=== PATIENT | male | born 1970 | race Caucasian/White ===

== ENCOUNTER 2020-06-11 11:40 | Outpatient (RCR) | payer OTHER, SELFPAY | END 2020-07-30 16:30 | disposition home or self-care (01) | LOC: HO.WCC 11:40 | PROVIDERS: Visit Provider Physician Assistant Surgical | DX: I87.311 Chronic venous hypertension (idiopathic) with ulcer of right lower extremity (principal); L97.812 Non-pressure chronic ulcer of other part of right lower leg with fat layer exposed; Z79.899 Other long term (current) drug therapy | CPT/HCPCS: 11042; 15271; 29581; 99211; 99213; Q4101 ==

== ENCOUNTER 2020-08-05 11:06 | Outpatient (REF) | payer OTHER, SELFPAY ==
[2020-08-05 12:01] LABS: MANUAL DIFF FLAG NO
[2020-08-05 12:03] LABS: Basophils Percent Auto 0.4 % (0-2); Eosinophils Absolute Auto 0.3 X10*3/uL (0.0-0.4); Eosinophils Percent Auto 2.7 % (0-4); Hematocrit 39.1 % (42-52); Hemoglobin 12.5 g/dl (14.0-18.0); Imm Gran Abs Auto 0.02 X10*3/uL (0.00-0.03); Imm Gran Pct Auto 0.2 % (0.0-0.4); Lymphocytes Absolute Auto 1.8 X10*3/uL (1.2-4.9); Lymphocytes Percent Auto 19.6 % (20-40); Mean Corpuscular Hemoglobin 29.9 pg (27.0-33.0); Mean Corpuscular Volume 93.5 fL (80-98); Monocytes Absolute Auto 0.7 X10*3/uL (0.1-1.2); Monocytes Percent Auto 7.4 % (2-11); Neutrophils Absolute Auto 6.3 X10*3/uL (2.0-8.3); Neutrophils Percent Auto 69.7 % (45-73); Platelet Count 284 X10*3/uL (160-400); Red Blood Count 4.18 X10*6/uL (4.60-5.80); Red Cell Distribution Width 12.2 % (11.0-16.0); White Blood Count 9.1 X10*3/uL (4.8-10.8)
[2020-08-05 12:26] LABS: Anion Gap 10 (12-20); Blood Urea Nitrogen 15 mg/dL (9-16); Calcium 8.1 mg/dL (8.4-10.2); Carbon Dioxide 35 mmol/L (22-29); Chloride 101 mmol/L (96-108); Cholesterol 154 mg/dL; Estimated Glomerular Filt Rate > 60; Glucose Fasting 87 mg/dL (60-99); HDL Cholesterol 31 mg/dL; LDL Cholesterol Calculated 110 mg/dl; Potassium 3.7 mmol/l (3.3-5.1); Sodium 142 mmol/L (135-145); Triglycerides 66 mg/dL
[2020-08-05 12:47] LABS: TSH reflex Free T4 3.74 mIU/mL (0.32-4.0)
[2020-08-05 13:58] LABS: Reflex LDLD? No
== END 2020-08-05 11:07 | disposition home or self-care (01) ==
LOC: HO.LAB 11:06
PROVIDERS: PCP Internal Medicine; Visit Provider Nurse Practitioner Family
DX: I10 Essential (primary) hypertension (principal)
CPT/HCPCS: 36415; 80048; 80061; 84443; 85025

== ENCOUNTER 2021-01-03 18:52 | Emergency (ER) | payer OTHER, SELFPAY ==
--- NOTE | ~2021-01-03 | US_ITS ---
EXAMINATION: US SCROTUM CLINICAL INFORMATION: Bilateral testicular pain with edematous scrotum. COMPARISON: None TECHNIQUE: A sonogram of the scrotum was performed assessing caruso-scale appearance and color Doppler flow. Spectral Doppler analysis of the arterial and venous flow were performed in the testes bilaterally. FINDINGS: Marked edema of the scrotal sac is present measuring nearly 2.8 cm RIGHT: Right testicle measures 4.5 x 2.9 x 2.7 cm, volume 18.5 mL. No focal testicular parenchymal lesions are visualized. Spectral Doppler analysis of the arterial and venous flow is normal in the right testis. Right epididymal head is normal in size. No right hydrocele or varicocele is seen. Right epididymal Doppler flow is normal. LEFT: Left testicle measures 4.6 x 2.8 x 2.8 cm, volume 18.3 mL. No focal testicular parenchymal lesions are visualized. Spectral Doppler analysis of the arterial and venous flow is normal in the left testis. Left epididymal head is normal in size. No left hydrocele or varicocele is seen. Left epididymal Doppler flow is normal. US/US scrotum doppler IMPRESSION: 1. Normal-appearing testes with normal vascularity. 2. Markedly edematous scrotum.
--- NOTE | ~2021-01-03 | US_ITS ---
EXAMINATION: US SCROTUM CLINICAL INFORMATION: Bilateral testicular pain with edematous scrotum. COMPARISON: None TECHNIQUE: A sonogram of the scrotum was performed assessing caruso-scale appearance and color Doppler flow. Spectral Doppler analysis of the arterial and venous flow were performed in the testes bilaterally. FINDINGS: Marked edema of the scrotal sac is present measuring nearly 2.8 cm RIGHT: Right testicle measures 4.5 x 2.9 x 2.7 cm, volume 18.5 mL. No focal testicular parenchymal lesions are visualized. Spectral Doppler analysis of the arterial and venous flow is normal in the right testis. Right epididymal head is normal in size. No right hydrocele or varicocele is seen. Right epididymal Doppler flow is normal. LEFT: Left testicle measures 4.6 x 2.8 x 2.8 cm, volume 18.3 mL. No focal testicular parenchymal lesions are visualized. Spectral Doppler analysis of the arterial and venous flow is normal in the left testis. Left epididymal head is normal in size. No left hydrocele or varicocele is seen. Left epididymal Doppler flow is normal. US/US scrotum IMPRESSION: 1. Normal-appearing testes with normal vascularity. 2. Markedly edematous scrotum.
[2021-01-03 19:56] VITALS: BP 120/62; PULSE 72; RESP 20; TEMP 37.4; O2SAT 95; BMI 82.3
--- NOTE | 2021-01-03 22:59 | ED_ITS ---
HPI - Male Genitourinary General Chief complaint: Skin/Abscess/Foreign Body Stated complaint: Swelling in groin area Time Seen by Provider: 01/03/21 22:17 Source: patient Mode of arrival: wheelchair Limitations: no limitations History of Present Illness HPI Narrative: Patient comes to emergency room complaining of testicular pain. Patient states 2 weeks ago he was trying to get in bed, seems that once he was on on his belly, the mattress made him rebound backwards, patient fell on his back, possibly landed on his testes. Patient states he immediately had pain, however he did not have any other symptoms. Approximately 5 days afterwards, he started noticing that his scrotum was getting more swollen, red. Patient decided to wait to see if the swelling would decrease by itself, however this will be kept increasing and the pain got worse. Patient denies any urinary symptoms, no hematuria, no fever, no chills. Patient denies penile discharge MD Complaint: testicle pain, testicle swelling and genital injury Related Data Previous Rx's Medication Instructions Recorded cyclobenzaprine 10 mg tablet 10 mg PO BEDTIME 30 Days #30 tab 12/12/20 docusate sodium 100 mg capsule 100 mg PO DAILY PRN #30 cap 12/12/20 ferrous sulfate 325 mg (65 mg 325 mg PO DAILY #30 tab 12/12/20 iron) tablet losartan 100 1 tab PO DAILY #90 tab 12/12/20 mg-hydrochlorothiazide 25 mg tablet metoprolol tartrate 50 mg tablet 50 mg PO DAILY #90 tab 12/12/20 tizanidine 4 mg tablet 4 mg PO BID PRN #60 tab 12/12/20 tramadol 50 mg tablet 50 mg PO DAILY 20 Days #20 tab 12/12/20 ibuprofen 600 mg PO TID PRN #10 tab 01/04/21 oxycodone-acetaminophen [Percocet] 1 tab PO TID PRN #10 tab 01/04/21 Allergies Allergy/AdvReac Type Severity Reaction Status Date / Time No Known Allergies Allergy Verified 01/03/21 19:56 [No Known Allergies*] Review of Systems Review of Systems: Constitutional : No Weight loss, No Fever, No Chills, No Night Sweats, No Fatigue, No Malaise ENT/Mouth : No Hearing loss, No Ear Pain, No Nasal Congestion, No Sinus Pain, No Hoarseness, No sore throat, No Rhinorrhea, No Swallowing Difficulty Eyes: No Eye Pain, No Swelling, No Redness, No Foreign Body, No Discharge, No Vision Changes Cardiovascular : No Chest Pain, No SOB, No Dyspnea on Exertion, No Orthopnea, No Edema, No Palpitations Respiratory : No Cough, No Sputum, No Wheezing, No Smoke Exposure, No Dyspnea Gastrointestinal : No Nausea, No Vomiting, No Diarrhea, No Constipation, No abdominal Pain, No Hematochezia, No Melena Genitourinary :No Dysuria, No Urinary Frequency, No Hematuria, No Urinary Incontinence, No Urgency, No Flank Pain, No Urinary Flow Changes, No Hesitancy. Complaining of bilateral testicular pain and swelling Musculoskeletal : No joint pain, No Myalgias, No Joint Swelling Skin : No Skin Lesions, No rash Neuro : No Weakness, No Numbness, No Paresthesias, No Loss of Consciousness, No Dizziness, No Headache Psych : No Anxiety/Panic, No Depression, No SI/HI/AH/VH, No Social Issues, Heme/Lymph: No Bruising, No Bleeding,No Lymphadenopathy Endocrine : No Polyuria, No Polydipsia, No Temperature Intolerance [facility] Past Medical History Medical History (Updated 01/04/21 @ 01:13 by Lauryn Candelario MD) Hypertension Lumbar pain with radiation down both legs Surgical History No pertinent past surgical history Family History Family History (Updated 08/20/20 @ 06:33 by Renetta Thompson [facility]) Father No problems noted. Mother No problems noted. Social History Social History Alcohol intake: never Smoking Status: Never smoker Use of substances other than those prescribed or required for medical reasons: No Advance Directives: No Advance Directives Information Provided: Yes Physical Exam Vital Signs: Vital Signs: Last Vital Signs Temp 99.0 F 01/04/21 00:00 Pulse 71 01/04/21 00:00 Resp 20 01/04/21 00:00 BP 174/84 H 01/04/21 00:00 Pulse Ox 97 01/04/21 00:00 Body Mass Index 82.3 Appearance: Alert. Oriented X3. No acute distress. Eyes: Pupils equal, round and reactive to light. ENT: Pharynx normal. Neck: Normal inspection. Neck supple. No lymph nodes noted. No crepitus CVS: Normal heart rate and rhythm. Pulses normal. Normal S1 and S2 Respiratory: No respiratory distress. Breath sounds normal. No Wheezing. No rales Abdomen: Soft and nontender. No rigidity. No distention. Morbidly obese : Significant swelling of scrotum, likely edematous, penile edema, pain to palpation over the scrotum, seems to have pain, discomfort, difficult to palpate testes due to significant edema. No perineal erythema Skin: Skin warm and dry. Normal skin color. Normal skin turgor. Extremities: No lower extremity edema. No lower extremity edema. No Lacerations. No Rash Neuro: Oriented X 3. No motor deficit. No sensory deficit. Moving all extermities. No slurred speech. Course Course Course Narrative: Patient's ultrasound shows that the testes are within normal limits, to have normal flow. Patient has extensive edema measuring up to 3 cm. Cellulitis or neema's gangrene is not suspected at this time. I discussed the patient with Dr. [place]. Recommendations are to have the pelvis elevated as much as possible, and wrapped a towel around the scrotum to create p ressure to help reduce the edema. Recommendations discussed with patient. MDM - Male Genitourinary Lab Data Result diagrams: 01/04/21 00:45 01/04/21 00:45 Labs: Lab Results 01/03/21 01/04/21 Range/Units 23:02 00:45 WBC 10.5 (4.8-10.8) X10*3/uL RBC 4.44 L (4.60-5.80) X10*6/uL Hgb 13.4 L (14.0-18.0) g/dl Hct 41.1 L (42-52) % MCV 92.6 (80-98) fL MCH 30.2 (27.0-33.0) pg MCHC 32.6 (31.0-36.0) g/dl RDW 11.8 (11.0-16.0) % Plt Count 293 (160-400) X10*3/uL MPV 10.4 (9.4-12.4) fL Immature Gran % (Auto) 0.4 (0.0-0.4) % Neut % (Auto) 71.6 (45-73) % Lymph % (Auto) 18.6 L (20-40) % [place] % (Auto) 7.0 (2-11) % Eos % (Auto) 1.9 (0-4) % Baso % (Auto) 0.5 (0-2) % Lymph # (Auto) 2.0 (1.2-4.9) X10*3/uL [place] # (Auto) 0.7 (0.1-1.2) X10*3/uL Eos # (Auto) 0.2 (0.0-0.4) X10*3/uL Baso # (Auto) 0.1 (0.0-0.2) X10*3/uL Abs Immat Gran (auto) 0.04 H (0.00-0.03) X10*3/uL Absolute Neuts (auto) 7.5 (2.0-8.3) X10*3/uL Absolute Nucleated RBC 0.000 (0.0-0.012) X10*3/uL Nucleated RBC % (auto) 0.0 (0.0-0.2) /100WBC Urine Color YELLOW Urine Appearance CLEAR Urine pH 6.5 (5.0-8.0) Ur Specific [place] 1.020 (1.005-1.025) Urine Protein NEG (NEG-TRACE) MG/DL Urine Glucose (UA) NEG (NEG) MG/DL Urine Ketones NEG (NEG) MG/DL Urine Blood NEG (NEG) Urine Nitrite NEG (NEG) Ur Leukocyte Esterase NEG (NEG) Imaging Data Scrotal ultrasound: Radiologist's impression: FINDINGS: Marked edema of the scrotal sac is present measuring nearly 2.8 cm RIGHT: Right testicle measures 4.5 x 2.9 x 2.7 cm, volume 18.5 mL. No focal testicular parenchymal lesions are visualized. Spectral Doppler analysis of the arterial and venous flow is normal in the right testis. Right epididymal head is normal in size. No right hydrocele or varicocele is seen. Right epididymal Doppler flow is normal. LEFT: Left testicle measures 4.6 x 2.8 x 2.8 cm, volume 18.3 mL. No focal testicular parenchymal lesions are visualized. Spectral Doppler analysis of the arterial and venous flow is normal in the left testis. Left epididymal head is normal in size. No left hydrocele or varicocele is seen. Left epididymal Doppler flow is normal. US/US scrotum IMPRESSION: 1. Normal-appearing testes with normal vascularity. 2. Markedly edematous scrotum. Discharge Plan Discharge Clinical Impression: Scrotal edema Patient Disposition: Home, Self-Care Instructions: Hydrocele (ED) Additional Instructions: Try to keep her pelvis elevated, you may wrap a towel around the scrotum to create pressure to help the swelling reduced. Please follow-up with your primary care physician tomorrow. If you have any worsening or new symptoms, ple ase return to the emergency room or call 911 Prescriptions: New oxycodone-acetaminophen [Percocet] 5-325 mg tablet 1 tab PO TID PRN (Reason: pain) Qty: 10 RF: 0 ibuprofen 600 mg tablet 600 mg PO TID PRN (Reason: pain) Qty: 10 RF: 0 No Action cyclobenzaprine 10 mg tablet 10 mg PO BEDTIME 30 Days Qty: 30 RF: 0 docusate sodium [Colace] 100 mg capsule 100 mg PO DAILY PRN (Reason: constipation) Qty: 30 RF: 0 ferrous sulfate 325 mg (65 mg iron) tablet 325 mg PO DAILY Qty: 30 RF: 3 losartan-hydrochlorothiazide 100-25 mg tablet 1 tab PO DAILY Qty: 90 RF: 3 metoprolol tartrate 50 mg tablet 50 mg PO DAILY Qty: 90 RF: 3 tizanidine 4 mg tablet 4 mg PO BID PRN (Reason: for muscle spasm) Qty: 60 RF: 1 tramadol 50 mg tablet 50 mg PO DAILY 20 Days Qty: 20 RF: 0
[2021-01-03 23:12] LABS: Appearance Urine CLEAR; Color Urine YELLOW; Glucose Urine UA NEG (NEG); Leukocyte Esterase Urine NEG (NEG); Nitrite Urine NEG (NEG); PH 6.5 (5.0-8.0); UACC Culture Trigger NO; Urine Blood NEG (NEG); Urine Ketones NEG (NEG); Urine Protein NEG (NEG-TRACE)
[2021-01-03 23:18] VITALS: BP 136/81; PULSE 69; RESP 16; O2SAT 97
[2021-01-04] VITALS: BP 174/84; PULSE 71; RESP 20; TEMP 37.2; O2SAT 97
[2021-01-04] MEDS: oxyCODONE HCl Immed Release 5 MG TABLET 10 MG PO (00:33)
--- NOTE | 2021-01-04 00:39 | PC.NURSE ---
pt a&o, no sob or chest pain. Medicated per nov.
[2021-01-04 00:49] LABS: MANUAL DIFF FLAG NO
[2021-01-04 00:50] LABS: Basophils Absolute Auto 0.1 X10*3/uL (0.0-0.2); Basophils Percent Auto 0.5 % (0-2); Eosinophils Absolute Auto 0.2 X10*3/uL (0.0-0.4); Eosinophils Percent Auto 1.9 % (0-4); Hematocrit 41.1 % (42-52); Hemoglobin 13.4 g/dl (14.0-18.0); Imm Gran Abs Auto 0.04 X10*3/uL (0.00-0.03); Imm Gran Pct Auto 0.4 % (0.0-0.4); Lymphocytes Percent Auto 18.6 % (20-40); Mean Corpuscular HGB Conc 32.6 g/dl (31.0-36.0); Mean Corpuscular Hemoglobin 30.2 pg (27.0-33.0); Mean Corpuscular Volume 92.6 fL (80-98); Mean Platelet Volume 10.4 fL (9.4-12.4); Monocytes Absolute Auto 0.7 X10*3/uL (0.1-1.2); Neutrophils Absolute Auto 7.5 X10*3/uL (2.0-8.3); Neutrophils Percent Auto 71.6 % (45-73); Platelet Count 293 X10*3/uL (160-400); Red Blood Count 4.44 X10*6/uL (4.60-5.80); Red Cell Distribution Width 11.8 % (11.0-16.0); White Blood Count 10.5 X10*3/uL (4.8-10.8)
[2021-01-04 01:14] LABS: Anion Gap 11 (12-20); Blood Urea Nitrogen 14 mg/dL (9-16); Carbon Dioxide 35 mmol/L (22-29); Chloride 98 mmol/L (96-108); Creatinine Clr Calc Pharmacy 157.1; Estimated Glomerular Filt Rate > 60; Glucose Random 101 mg/dL (60-115); Potassium 4.2 mmol/L (3.3-5.1); Sodium 140 mmol/L (135-145)
== END 2021-01-04 01:40 | disposition home or self-care (01) ==
PROVIDERS: Emergency Provider Emergency Medicine; PCP Internal Medicine
DX: N50.812 Left testicular pain (principal); N50.811 Right testicular pain; N50.89 Other specified disorders of the male genital organs; I10 Essential (primary) hypertension; E66.01 Morbid (severe) obesity due to excess calories
CPT/HCPCS: 36415; 76870; 80048; 81003; 85025; 93975; 99284